=== PATIENT | male | born 1995 | race Caucasian/White ===

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

== ENCOUNTER 2017-08-18 01:17 | Observation (INO) | payer BC, OTHER ==
[~2017-08-18] VITALS: Ht 185.4 cm; Wt 87.6 kg
[~2017-08-18 01:17] MED LIST: AZITTAB PO
[2017-08-18 02:19] LABS: HEMATOCRIT 41.7 % (42-52); HEMOGLOBIN 14.8 g/dL (14.0-18.0); MEAN CELL VOLUME 89.1 fL (80-100); MEAN CORPUSCULAR HEMOGLOBIN 31.6 pg (25-34); MEAN CORPUSCULAR HGB CONC 35.5 g/dl (32-36); MEAN PLATELET VOLUME 10.1 fL (7.4-10.4); PLATELET COUNT 351 K/uL (130-400); RED CELL DISTRIBUTION WIDTH CV 13.1 % (11.5-14.5); RED CELL DISTRIBUTION WIDTH SD 42.7 fL (36.4-46.3); WHITE BLOOD COUNT 16.57 K/uL (4.8-10.8)
[2017-08-18 02:38] LABS: ALBUMIN 4.5 gm/dl (3.4-5.0); CALCIUM 9.1 mg/dl (8.5-10.1); CREATININE 1.15 mg/dl (0.60-1.40); POTASSIUM 3.4 mmol/L (3.5-5.1)
--- NOTE | 2017-08-18 02:45 | EMERGENCY ROOM VISIT NOTE ---
History Report prepared by Eleuterio: Austin Casanova Under the Supervision of: Dr. June Gonzales D.O. First contact with patient: 01:30 Chief Complaint: OVERDOSE (ACCIDENTAL) Stated Complaint: UNDER THE INFLUENCE OF SOMETHING X 3DAYS Nursing Triage Summary: brought in by friends to er. friends state patient was drinking and partying all weekened, wednesday 08/16 they noticed he was not himself, friends stated he was just not acting himself, they stated he took some xanax on wednesday and thought that it may be related to that. today he still was not acting appropriatley so they brought him in. History of Present Illness The patient is a 22 year old male who presents to the Emergency Room with complaints of a worsening altered mental status beginning 9 days ago. The patient's friend states the patient has been altered for 9 days, but it worsened three days ago. The patient reports he is from [place] and went to high school there. He notes he graduated in 2046, and it is May 23. The patient states he went on spring break with his family to spend time with his grandparents. He reports he has not used any drugs recently. The patient notes he has used Xanax, marijuana, and LSD before. He states he does not know how he got the bruises on his arm. The patient reports he is acting happy because he is "tripping on love." He notes it is okay to contact his parents. The patient denies abdominal pain, vomiting, and diarrhea. The patient's friends state they hosted a republican Wednesday and Wednesday night. They report the patient was there, and they believe he consumed Xanax, marijuana, and alcohol all together. The friends note he did not use LSD. They state the patient did seem out of it on Wednesday, but they believed he was just hungover. The friends report he started saying weird things and talking about "the other side". They note they observed the patient Wednesday, Wednesday, and Wednesday. The friends state everything went okay yesterday, and the day before the patient did not go to class. They note the patient used the restroom very frequently today. They report the patient is planning on dropping out and did not find it odd that he skipped. The friends note they have lived with the patient for the entire academic year. 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 The friends report he is a habitual marijuana user. They note he was normal before spring. HPI limited secondary to the patient's altered mental status. Source of History: friend History Limited By: AMS Review of Systems ROS limited secondary to the patient's altered mental status. Past Medical & Surgical Medical Problems: (1) Pneumonia (2) Suicidal ideations (3) Tobacco use disorder Surgical Problems: (1) No history of previous surgery Family History No significant family history Social History Smoking Status: Never Smoker Alcohol Use: occasionally Drug Use: marijuana Marital Status: single Housing Status: lives with friends Occupation Status: [employer] student Current/Historical Medications Unable to Obtain Active Prescriptions or Reported Meds Allergies Coded Allergies: No Known Allergies (Unverified , 07/16/16) Physical Exam Vital Signs Date Time Temp Pulse Resp B/P (MAP) Pulse Ox O2 Delivery O2 Flow Rate FiO2 08/18/17 05:40 36.8 65 16 151/91 98 Room Air 08/18/17 04:09 76 18 148/87 98 Room Air 08/18/17 02:31 83 17 156/81 98 Room Air 08/18/17 02:08 75 18 165/90 100 Room Air 08/18/17 02:07 88 08/18/17 01:20 36.8 88 18 180/106 98 Room Air Physical Exam General: Patient has an altered mental status. He is staring at times and not making good eye contact. He is laughing inappropriately. HEENT: Head - normocephalic and atraumatic Pupils are 8mm and reactive to light. Extraocular eye muscles are intact, and sclera are anicteric. Nose - moist nasal mucosa without discharge. Mouth - moist buccal mucosa. Oropharynx is nonerythematous and there is no tonsillar exudate or edema noted. Neck: Supple; no JVD, nuchal rigidity, cervical lymphadenopathy Heart: Regular rate and rhythm. There is a normal S1 and S2 with no murmurs, clicks, or gallops appreciated. Lungs: Clear to auscultation bilaterally with no wheezes, rales, or rhonchi. Abdomen: Soft, completely nontender, nondistended, with good bowel sounds. There are no palpable pulsatile masses or hepatosplenomegaly. There is no guarding, rigidity, or rebound noted. Extremities: No evidence of cyanosis, clubbing, or edema. There are easily palpable peripheral pulses. Dorsal aspect of right forearm has a few contusions. Skin: warm and dry with good turgor and no rashes. Neurological: Alert but oriented only to self. Frequently would not answer questions appropriately. At times he was staring it would not acknowledge a question. Medical Decision & Procedures ER Provider Diagnostic Interpretation: CT results as stated below per my review and radiologist interpretation: CT HEAD: No ICH, mass effect or edema. No evidence of acute cortical stroke. No midline shift or hydrocephalus. Mucosal thickening and fluid in the left maxillary sinus. Correlate for clinical significance. Radiologist: James Tavarez MD Study ready at 0252 and initial results transmitted at [id number]. Laboratory Results Test 08/18/17 01:41 08/18/17 02:06 Urine Color YELLOW Urine Appearance CLEAR (CLEAR) Urine pH 7.0 (4.5-7.5) Urine Specific [place] 1.018 (1.000-1.030) Urine Protein NEG (NEG) Urine Glucose (UA) NEG (NEG) Urine Ketones TRACE (NEG) Urine Occult Blood NEG (NEG) Urine Nitrite NEG (NEG) Urine Bilirubin NEG (NEG) Urine Urobilinogen NEG (NEG) Urine Leukocyte Esterase NEG (NEG) Urine Opiates Screen NEG (NEG) Urine Methadone, Qualitative NEG (NEG) Urine Barbiturates NEG (NEG) Urine Phencyclidine (PCP) Level NEG (NEG) Ur Amphetamine/Methamphetamine POS (NEG) MDMA (Ecstasy) Screen NEG (NEG) Urine Benzodiazepines Screen POS (NEG) Urine Cocaine Metabolite NEG (NEG) Urine Marijuana (THC) POS (NEG) Immature Granulocyte % (Auto) 0.2 % White Blood Count 16.57 K/uL (4.8-10.8) Red Blood Count 4.68 M/uL (4.7-6.1) Hemoglobin 14.8 g/dL (14.0-18.0) Hematocrit 41.7 % (42-52) Mean Corpuscular Volume 89.1 fL (80-100) Mean Corpuscular Hemoglobin 31.6 pg (25-34) Mean Corpuscular Hemoglobin Concent 35.5 g/dl (32-36) Platelet Count 351 K/uL (130-400) Mean Platelet Volume 10.1 fL (7.4-10.4) Neutrophils (%) (Auto) 82.0 % Lymphocytes (%) (Auto) 10.2 % Monocytes (%) (Auto) 7.1 % Eosinophils (%) (Auto) 0.4 % Basophils (%) (Auto) 0.1 % Neutrophils # (Auto) 13.41 K/uL (1.4-6.5) Lymphocytes # (Auto) 1.66 K/uL (1.2-3.4) Monocytes # (Auto) 1.16 K/uL (0.11-0.59) Eosinophils # (Auto) 0.06 K/uL (0-0.5) Basophils # (Auto) 0.02 K/uL (0-0.2) Immature Granulocyte # (Auto) 0.03 K/uL (0.00-0.02) Nucleated RBC Absolute Count (auto) 0.00 K/uL (0-0) Nucleated Red Blood Cells % 0.0 % Total Bilirubin 0.7 mg/dl (0.2-1) Direct Bilirubin 0.1 mg/dl (0-0.2) Aspartate Amino Transf (AST/SGOT) 13 U/L (15-37) Alanine Aminotransferase (ALT/SGPT) 18 U/L (12-78) Alkaline Phosphatase 86 U/L (45-117) Total Protein 8.0 gm/dl (6.4-8.2) Albumin 4.5 gm/dl (3.4-5.0) Thyroid Stimulating Hormone (TSH) 4.080 uIu/ml (0.300-4.500) Salicylates Level < 1.7 mg/dl (2.8-20) Acetaminophen Level < 2 ug/ml (10-30) Ethyl Alcohol mg/dL < 3.0 mg/dl (0-3) Laboratory results per my review. ED Course 0222: Past medical records reviewed. The patient was evaluated in room A06. A complete history and physical exam was performed. Labs were drawn as above. I had an extensive conversation with the patient's friends who were at the bedside. We attempted to contact the patient's parents but were unsuccessful. 0417: I reevaluated the patient. I discussed all laboratory and physical exam findings. The patient is still altered. 0425: I discussed the patient's case with the resident of Dr. Green [facility] Hospitalist. The patient will be evaluated for further management and care. 0448: I discussed the patient's case with his friend. I updated him of the patient's current test results and treatment plan. Medical Decision The patient is a 22 year old male who presents to the ED with an altered mental status. Differential diagnosis includes drug intoxication, hypoglycemia, intracranial hemorrhage, intracranial mass, stroke. Lab results show: Urine: trace ketones. Alcohol is negative, Tylenol and aspirin are negative. Tox screen in positive for amphetamines, benzos, and marijuana. Normal TSH, LFTs, and renal function. Glucose of 106. WBC of 16.5. This is a 22-year-old male patient brought to the emergency department by friends for an altered mental status. They believe that the patient is under the influence of drugs but are concerned because despite them watching him closely throughout the day today, his mental status seems more altered than it had been previously. The patient's answers were inconsistent. By history though, the patient seems to have an extensive drug use history. His mental status is significantly altered at this time. The friends and the patient denies any history of head trauma. He has no outward signs of trauma. His physical exam is unremarkable except for his neurological exam which is inconsistent but mostly the patient is unable to answer simple questions. In fact, it is quite difficult for him to formulate a complete sentence. The patient does smile and laugh inappropriately. Medication Reconcilliation Current Medication List: was personally reviewed by me Blood Pressure Screening Patient's blood pressure: Elevated blood pressure Referred to hospitalist. Consults Time Called: [phone] Consulting Physician: resident of Dr. Green [facility] Hospitalist Returned Call: [phone] I discussed the patient's case with the resident of Dr. Green [facility] Hospitalist. The patient will be evaluated for further management and care. Impression Primary Impression: Polysubstance abuse Additional Impression: Altered mental status Scribe Attestation The scribe's documentation has been prepared under my direction and personally reviewed by me in its entirety. I confirm that the note above accurately reflects all work, treatment, procedures, and medical decision making performed by me. Departure Information Dispostion Being Evaluated By Hospitalist Prescriptions Unable to Obtain Active Prescriptions or Reported Meds Referrals No Doctor, Assigned (PCP) Patient Instructions My [facility] Problem Qualifiers Additional Impression: Altered mental status Altered mental status type: delirium Qualified Codes: R41.0 - Disorientation , unspecified
[2017-08-18] MEDS ORDERED: NITROGLYCERIN 0.4 MG SL PER TAB CHARGE SL PRN (04:45)
[2017-08-18] MEDS ORDERED: POLYETHYLENE (MIRALAX) 17 GM PACK PO PRN (04:45)
[2017-08-18] MEDS ORDERED: ALUMINUM/MAGNESIUM/SIMETH (MAALOX MAX) 30 ML UDC PO PRN (04:45)
[2017-08-18] MEDS ORDERED: MAGNESIUM HYDROXIDE SUSP 30 ML UDC PO PRN (04:45)
[2017-08-18] MEDS ORDERED: ACETAMINOPHEN 325 MG TAB PO PRN (04:45)
[2017-08-18] MEDS ORDERED: ONDANSETRON INJ 2 MG/ML 2 ML VIAL IV PRN (04:45)
--- NOTE | 2017-08-18 04:45 | History and Physical ---
History & Physical Date & Time of Service: Aug 18, 2017 at 04:30 Chief Complaint: Under The Influence Of Something X 3DAYS Primary Care Physician: No Doctor, Assigned History of Present Illness Source: patient, hospital records 22 year male with history of polysubstance abuse is brought to the ER by his friends for a 7 day history of acting strangely and a 2 day history of patient being non-coherent and making several comments about and dying. Patient is currently a poor historian secondary to altered mental status, although there seems to be some improvement in coherence since evaluation by ER physician. Friends state patient has been taking multiple drugs, including Xanax, something for ADHD, marijuana and drinking alcohol. He starting acting stranger than usual recently, but they have noted abnormalities for some time. Patient is said to be pretty happy at baseline, but can appear to be depressed at moment 's notice. 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 His parents are unaware of his plans to quit school and start a business with [employer] because "he is meant to do more". Speaking to the patient, when asked how he is feeling, he states "I'm doing great". He denies headache, fevers, chills, visual changes, neck pain, breathing difficulties, nausea, vomiting, abdominal pain, urinary symptoms, numbness, weakness, rash, or other complaints. When asked about his drug use, he is unable to recall how much he is taking or when he last took them. When discussing where he gets these drugs, he states he buys it off a friend. When asked why he was taking drugs or if he has any suicidal thoughts, he stated "I tried to kill myself with the Xanax, but then I found myself" He denies current SI or HI. ROS is unremarkable except as noted above. Past Medical/Surgical History Medical Problems: (1) Pneumonia (2) Tobacco use disorder Surgical Problems: (1) No history of previous surgery Family History No significant family history Social History Smoking Status: Never Smoker Drug Use: marijuana Marital Status: single Occupational Status: [employer] student Immunizations History of Influenza Vaccine: Unknown History of Tetanus Vaccine?: Unknown History of Pneumococcal: Unknown History of Hepatitis B Vaccine: Unknown Allergies Coded Allergies: No Known Allergies (Unverified , 07/16/16) Home Medications Unable to Obtain Active Prescriptions or Reported Meds Physical Exam Vital Signs Date Time Temp Pulse Resp B/P (MAP) Pulse Ox O2 Delivery O2 Flow Rate FiO2 08/18/17 04:09 76 18 148/87 98 Room Air 08/18/17 02:31 83 17 156/81 98 Room Air 08/18/17 02:08 75 18 165/90 100 Room Air 08/18/17 02:07 88 08/18/17 01:20 36.8 88 18 180/106 98 Room Air General Appearance: WD/WN, no apparent distress Head: normocephalic, atraumatic Eyes: sclerae normal, + pertinent finding (pupils dilated) ENT: hearing grossly normal, pharynx normal Neck: supple, no adenopathy Respiratory/Chest: normal breath sounds, no respiratory distress, no accessory muscle use Cardiovascular: regular rate, rhythm, no murmur, normal peripheral pulses Abdomen/GI: normal bowel sounds, non tender, soft Back: normal inspection Extremities/Musculoskelatal: no calf tenderness, no pedal edema Neurologic/Psych: + disoriented, + pertinent finding (slow speech, responds appropriately intermittently, often requiring repititon of the question) Skin: normal color, warm/dry, no rash Diagnostics Laboratory Results Results Past 24 Hours Test 08/18/17 01:41 08/18/17 02:06 Range/Units Urine Color YELLOW Urine Appearance CLEAR CLEAR Urine pH 7.0 4.5-7.5 Urine Specific [place] 1.018 1.000-1.030 Urine Protein NEG NEG Urine Glucose (UA) NEG NEG Urine Ketones TRACE NEG Urine Occult Blood NEG NEG Urine Nitrite NEG NEG Urine Bilirubin NEG NEG Urine Urobilinogen NEG NEG Urine Leukocyte Esterase NEG NEG Urine Opiates Screen NEG NEG Urine Methadone, Qualitative NEG NEG Urine Barbiturates NEG NEG Urine Phencyclidine (PCP) Level NEG NEG Ur Amphetamine/Methamphetamine POS NEG MDMA (Ecstasy) Screen NEG NEG Urine Benzodiazepines Screen POS NEG Urine Cocaine Metabolite NEG NEG Urine Marijuana (THC) POS NEG White Blood Count 16.57 4.8-10.8 K/uL Red Blood Count 4.68 4.7-6.1 M/uL Hemoglobin 14.8 14.0-18.0 g/dL Hematocrit 41.7 42-52 % Mean Corpuscular Volume 89.1 80-100 fL Mean Corpuscular Hemoglobin 31.6 25-34 pg Mean Corpuscular Hemoglobin Concent 35.5 32-36 g/dl RDW Standard Deviation 42.7 36.4-46.3 fL RDW Coefficient of Variation 13.1 11.5-14.5 % Platelet Count 351 130-400 K/uL Mean Platelet Volume 10.1 7.4-10.4 fL Sodium Level 139 136-145 mmol/L Potassium Level 3.4 3.5-5.1 mmol/L Chloride Level 101 98-107 mmol/L Carbon Dioxide Level 29 21-32 mmol/L Anion Gap 9.0 3-11 mmol/L Blood Urea Nitrogen 5 7-18 mg/dl Creatinine 1.15 0.60-1.40 mg/dl Est Creatinine Clear Calc Drug Dose 115.8 ml/min Estimated GFR () 105.6 Estimated GFR (Non- 91.1 BUN/Creatinine Ratio 4.5 10-20 Random Glucose 106 70-99 mg/dl Calcium Level 9.1 8.5-10.1 mg/dl Total Bilirubin 0.7 0.2-1 mg/dl Direct Bilirubin 0.1 0-0.2 mg/dl Aspartate Amino Transf (AST/SGOT) 13 15-37 U/L Alanine Aminotransferase (ALT/SGPT) 18 12-78 U/L Alkaline Phosphatase 86 45-117 U/L Total Protein 8.0 6.4-8.2 gm/dl Albumin 4.5 3.4-5.0 gm/dl Thyroid Stimulating Hormone (TSH) 4.080 0.300-4.500 uIu/ml Salicylates Level < 1.7 2.8-20 mg/dl Acetaminophen Level < 2 10-30 ug/ml Ethyl Alcohol mg/dL < 3.0 0-3 mg/dl Diagnostic Radiology HEAD WITHOUT CONTRAST (CT) CT DOSE: 614.27 mGy.cm HISTORY: Mental status change altered ms TECHNIQUE: Multiaxial CT images of the head were performed without the use of intravenous contrast. A dose lowering technique was utilized adhering to the principles of ALARA. Comparison: None. Findings: The paranasal sinuses and mastoid air cells are clear. The calvarium and skull base are intact. The ventricles and sulci are within normal limits. There is no mass, hematoma, midline shift, or acute infarct. Slight increased density right transverse sinus felt to represent unremarkable normal asymmetry. Impression: No acute intracranial abnormality. Impression Assessment and Plan 22 year old male with polysubstance abuse presents to the ER with altered mental status and suicidal ideation Altered mental status - CT head negative for pathology - EKG showed NSR with normal intervals including normal QTc - Urine drug screen positive for benzos, amphetamine, marijuana - reflex testing pending - Neuro checks q4h Suicidal ideation - Psychiatry consulted - One to one sitter Leukocytosis - Patient afebrile, BP in acceptable range, saturating well on RA - no abx started - Trend CBC VTE ppx - SCDs FULL CODE Attending addendum: I have physically seen this patient, have supervised the medical residents activities, and agree with the H&P unless as otherwise noted. Assessment and Plan: Suicidal ideation/intentional drug overdose-- Admit to the telemetry unit for close monitoring. Neuro checks every 4 hours. Present urine drug screen positive for benzodiazepines, amphetamine/ methamphetamine and marijuana. Consult psychiatry. One-on-one sitter overnight. Advanced Directives Existing Health Care Proxy: Yes (Parents) Resuscitation Status Full code VTE Prophylaxis Will order VTE Prophylaxis: Yes Resident Tracking Resident Involvement: Resident Care Provided Care Provided: Pediatric Care (not )
[2017-08-18 04:56] LABS: BASO % 0.1 %; BASO ABS # 0.02 K/uL (0-0.2); EOS % 0.4 %; EOS ABS # 0.06 K/uL (0-0.5); IG# 0.03 K/uL (0.00-0.02); LYMPH % 10.2 %; LYMPH ABS # 1.66 K/uL (1.2-3.4); MONO % 7.1 %; MONO ABS # 1.16 K/uL (0.11-0.59); NEUT ABS # 13.41 K/uL (1.4-6.5)
[2017-08-18] MEDS ORDERED: IV FLUIDS COMPLETED PRN (06:15)
[2017-08-18 06:52] LABS: HEMATOCRIT 41.6 % (42-52); HEMOGLOBIN 14.5 g/dL (14.0-18.0); MEAN CELL VOLUME 89.3 fL (80-100); MEAN CORPUSCULAR HEMOGLOBIN 31.1 pg (25-34); MEAN CORPUSCULAR HGB CONC 34.9 g/dl (32-36); MEAN PLATELET VOLUME 10.2 fL (7.4-10.4); PLATELET COUNT 301 K/uL (130-400); RED CELL DISTRIBUTION WIDTH SD 42.4 fL (36.4-46.3); WHITE BLOOD COUNT 12.14 K/uL (4.8-10.8)
[2017-08-18] MEDS ORDERED: SODIUM CHLORIDE 0.9% 1000ML 1,000 ML IV SCH (07:00)
--- NOTE | 2017-08-18 07:01 | DIAGNOSTIC IMAGING REPORT ---
HEAD WITHOUT CONTRAST (CT) CT DOSE: 614.27 mGy.cm HISTORY: Mental status change altered ms TECHNIQUE: Multiaxial CT images of the head were performed without the use of intravenous contrast. A dose lowering technique was utilized adhering to the principles of ALARA. Comparison: None. Findings: The paranasal sinuses and mastoid air cells are clear. The calvarium and skull base are intact. The ventricles and sulci are within normal limits. There is no mass, hematoma, midline shift, or acute infarct. Slight increased density right transverse sinus felt to represent unremarkable normal asymmetry. Impression: No acute intracranial abnormality. The above report was generated using voice recognition software. It may contain grammatical, syntax or spelling errors. Electronically signed by: Freddie Lowery M.D. 08/18/2017 6:59 AM Dictated Date/Time: 08/18/2017 6:56 AM
[2017-08-18 07:09] LABS: CALCIUM 9.2 mg/dl (8.5-10.1); CREATININE 1.09 mg/dl (0.60-1.40); POTASSIUM 3.8 mmol/L (3.5-5.1)
[2017-08-18 07:37] VITALS: BP 160/93; PULSE 74; TEMP 36.8; O2SAT 100
[2017-08-18 08:12] VITALS: O2SAT 100; Ht 185.4 cm; Wt 87.6 kg
[2017-08-18] MEDS ORDERED: PNEUMOCOCCAL POLYSACCHARIDES 25 MCG/0.5 ML VIAL/SYR IM. ONE (11:00)
[2017-08-18] MEDS ORDERED: INFLUENZA VIRUS QUAD VACCINE 0.5 ML SYR IM. ONE (11:00)
[2017-08-18] MEDS ORDERED: PNEUMOCOCCAL ADMINISTRATION CHARGE ONE (11:00)
[2017-08-18] MEDS ORDERED: INFLUENZA ADMINISTRATION CHARGE ONE (11:00)
--- NOTE | 2017-08-18 11:11 | Family Medicine Progress Note ---
Progress Note Date of Service Aug 18, 2017. Subjective Pt evaluation today including: conversation w/ patient, physical exam, chart review, lab review Pain: Denies pain 22-year-old male with history of polysubstance abuse admitted after he was brought to the ER by his friends due to concerns of being noncoherent and acting strange and making comments about and dying. The patient appears to be disoriented and does not answer questions, however he follows commands. Per the admitting team, he had verbalized suicidal ideations and stated that he had taken Xanax to end his life. States that "this is the best he has ever been "and states that he is in heaven. Additional Comments: Is a unable to obtain as patient does not answer questions Medications Current Inpatient Medications Medications (Trade) Dose Ordered Sig/Emmanuelle Route Start Time Stop Time Status Last Admin Dose Admin Sodium Chloride 1,000 ml @ 100 mls/hr Q10H IV 08/18/17 07:00 09/17/17 06:59 08/18/17 07:06 100 MLS/HR Acetaminophen (Tylenol Tab) 650 mg Q4H PRN PO 08/18/17 04:45 09/17/17 04:44 Al Hydrox/Mg Hydrox/Simethicone (Maalox Max Susp) 15 ml Q4H PRN PO 08/18/17 04:45 09/17/17 04:44 Magnesium Hydroxide (Milk Of Magnesia Susp) 30 ml Q12H PRN PO 08/18/17 04:45 09/17/17 04:44 Ondansetron HCl (Zofran Inj) 4 mg Q6H PRN IV 08/18/17 04:45 09/17/17 04:44 Nitroglycerin (Nitrostat Tab) 0.4 mg UD PRN SL 08/18/17 04:45 09/17/17 04:44 Polyethylene (Miralax Powder Packet) 17 gm DAILY PRN PO 08/18/17 04:45 09/17/17 04:44 Miscellaneous (Iv Fluids Completed) 1 ea PRN PRN N/A 08/18/17 06:15 08/18/18 06:14 Objective Vital Signs Date Time Temp Pulse Resp B/P (MAP) Pulse Ox O2 Delivery O2 Flow Rate FiO2 08/18/17 08:12 100 Room Air 08/18/17 07:37 36.8 74 20 160/93 (115) 100 Room Air 08/18/17 06:36 70 16 150/89 98 Room Air 08/18/17 05:40 36.8 65 16 151/91 98 Room Air 08/18/17 04:09 76 18 148/87 98 Room Air 08/18/17 02:31 83 17 156/81 98 Room Air 08/18/17 02:08 75 18 165/90 100 Room Air 08/18/17 02:07 88 08/18/17 01:20 36.8 88 18 180/106 98 Room Air Physical Exam ENT: hearing grossly normal Neck: supple Respiratory/Chest: lungs clear, normal breath sounds, no respiratory distress, no accessory muscle use Cardiovascular: regular rate, rhythm Neurologic/Psychiatric: alert, normal mood/affect, oriented x 3 Skin: normal color Laboratory Results 08/18/17 06:42 08/18/17 06:42 Test 08/18/17 01:41 08/18/17 02:06 08/18/17 06:42 Urine Color YELLOW Urine Appearance CLEAR (CLEAR) Urine pH 7.0 (4.5-7.5) Urine Specific [place] 1.018 (1.000-1.030) Urine Protein NEG (NEG) Urine Glucose (UA) NEG (NEG) Urine Ketones TRACE (NEG) Urine Occult Blood NEG (NEG) Urine Nitrite NEG (NEG) Urine Bilirubin NEG (NEG) Urine Urobilinogen NEG (NEG) Urine Leukocyte Esterase NEG (NEG) Urine Opiates Screen NEG (NEG) Urine Methadone, Qualitative NEG (NEG) Urine Barbiturates NEG (NEG) Urine Phencyclidine (PCP) Level NEG (NEG) Ur Amphetamine/Methamphetamine POS (NEG) MDMA (Ecstasy) Screen NEG (NEG) Urine Benzodiazepines Screen POS (NEG) Urine Cocaine Metabolite NEG (NEG) Urine Marijuana (THC) POS (NEG) Immature Granulocyte % (Auto) 0.2 % White Blood Count 16.57 K/uL (4.8-10.8) Red Blood Count 4.68 M/uL (4.7-6.1) 4.66 M/uL (4.7-6.1) Hemoglobin 14.8 g/dL (14.0-18.0) Hematocrit 41.7 % (42-52) Mean Corpuscular Volume 89.1 fL (80-100) 89.3 fL (80-100) Mean Corpuscular Hemoglobin 31.6 pg (25-34) 31.1 pg (25-34) Mean Corpuscular Hemoglobin Concent 35.5 g/dl (32-36) 34.9 g/dl (32-36) Platelet Count 351 K/uL (130-400) Mean Platelet Volume 10.1 fL (7.4-10.4) 10.2 fL (7.4-10.4) Neutrophils (%) (Auto) 82.0 % Lymphocytes (%) (Auto) 10.2 % Monocytes (%) (Auto) 7.1 % Eosinophils (%) (Auto) 0.4 % Basophils (%) (Auto) 0.1 % Neutrophils # (Auto) 13.41 K/uL (1.4-6.5) Lymphocytes # (Auto) 1.66 K/uL (1.2-3.4) Monocytes # (Auto) 1.16 K/uL (0.11-0.59) Eosinophils # (Auto) 0.06 K/uL (0-0.5) Basophils # (Auto) 0.02 K/uL (0-0.2) Immature Granulocyte # (Auto) 0.03 K/uL (0.00-0.02) Nucleated RBC Absolute Count (auto) 0.00 K/uL (0-0) Nucleated Red Blood Cells % 0.0 % Total Bilirubin 0.7 mg/dl (0.2-1) Direct Bilirubin 0.1 mg/dl (0-0.2) Aspartate Amino Transf (AST/SGOT) 13 U/L (15-37) Alanine Aminotransferase (ALT/SGPT) 18 U/L (12-78) Alkaline Phosphatase 86 U/L (45-117) Total Protein 8.0 gm/dl (6.4-8.2) Albumin 4.5 gm/dl (3.4-5.0) Thyroid Stimulating Hormone (TSH) 4.080 uIu/ml (0.300-4.500) Salicylates Level < 1.7 mg/dl (2.8-20) Acetaminophen Level < 2 ug/ml (10-30) Ethyl Alcohol mg/dL < 3.0 mg/dl (0-3) RDW Standard Deviation 42.4 fL (36.4-46.3) RDW Coefficient of Variation 13.0 % (11.5-14.5) Anion Gap 6.0 mmol/L (3-11) Est Creatinine Clear Calc Drug Dose 122.1 ml/min Estimated GFR () 112.6 Estimated GFR (Non- 97.2 BUN/Creatinine Ratio 4.1 (10-20) Calcium Level 9.2 mg/dl (8.5-10.1) Assessment and Plan 22-year-old male presented to the ER with concerns of polysubstance abuse and strange behavior per his friends. Urine drug screen was positive for amphetamines, benzodiazepines and marijuana Concern of suicidal ideation though he currently does not give any meaningful answers. Altered mental status : Likely secondary to a combination of polysubstance abuse and mental health disturbance -Head CT negative, EKG normal -Urine drug screen positive for benzos, amphetamine and marijuana -Suicide checks , one-to-one sitter -Psychiatry consult- risperidone 1 mg BID ordered - Haldol 5 mg q6h as needed for agitation Elevated blood pressure -Likely secondary to withdrawal from polysubstance abuse Continue to monitor Leukocytosis: - Likely secondary to stress response -No obvious foci of infection Full code Resident Physician Supervision Note: I interviewed and examined the patient. Discussed with Dr. Liu and agree with findings and plan as documented in the note. Any exceptions or clarifications are listed here: None Documented By: Terell Luna no meaningful HPI or ROS, laughs, cries, crawls around bed, rips monitor off sinus tachy only on monitor vitals noted as above, no physical distress, well hydrated, no neuro deficits, unable to assess mentation as he doesn't answer questions, acts randomly, laughs and cries probable substance induced psychosis vs less likely [place]/psychosis -supportive care, antipsychotics, time Resident Tracking Resident Involvement: Resident Care Provided Care Provided: Adult Hospital Medicine
[2017-08-18 11:13] VITALS: BP 152/95; PULSE 74; TEMP 36.9; O2SAT 99
--- NOTE | 2017-08-18 13:13 | Medical Student: BHU Only ---
Psychiatric Evaluation Date of Service: Aug 18, 2017. 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 Huey Chapman was brought to the hospital by friends. Information provided by the patient is considered to be unreliable as patient remains altered. CHIEF COMPLAINT: "I walked here this morning. I was just doing bad stuff with my friends last night". HISTORY OF PRESENT ILLNESS: Huey Chapman is a 22 year old male with past medical history significant for polysubstance abuse who presents for altered mental status. Per reports, he was brought to the ER early this morning after a 7-day history of strange behavior and 2-day history of non-coherence and statements regarding . Friends who were present in the ER and again this afternoon state that he likely took Xanax , ADHD medication, marijuana, and alcohol. There is some question whether he also took LSD. They say he is generally happy but may become depressed in a moment's notice. Note from primary team this morning states he made a statement about "trying to kill [himself] with Xanax but then [he] found [himself]." Upon arrival in the room, the patient was laughing to himself, rocking his body back and forth with his eyes closed. When asked why he was brought to the ER this morning, he states that he walked himself to the hospital and that he was "doing bad stuff with [his] friends last night." When asked what types of things , he says "Oh we killed ourselves. I was a Zombie. I killed myself." When asked whether he has suffered from depression, Huey claims "my whole life, people have told me I am crazy and cocky." When asked why, he responds "because they do not understand. They do not understand the future." When asked if he has ever seen a psychiatrist, Huey states he previously received Adderall, Xanax , and Ambien. He later retracts this statement saying he has never seen a psychiatrist, and he got the medications from a friend. He has random outbursts screaming "I knew it!." After realizing this interviewer is part of the psychiatry team, he says "I need everything you think I need to have fun. Just give me one of everything. I have the girl I want. I have friends. My life is perfect." When asked about depression, he says "society would call me depressed " but denies ever using an anti-depressant or having suicidal ideations. His sitter states that throughout the day, he will burst out in tears exclaiming "I am in heaven!" He admits to having anxiety but can not answer any questions about levy, panic disorder, OCD symptoms, or PTSD. When asked about substance use, Huey states he uses acid, Xanax, marijuana, and Adderall. He later states that he is not on any drugs nor that he uses alcohol. In terms of personal history, patient states he grew up in [place] with his parents and younger sister. Records indicate he is from [place], and his sitter states earlier he said he was from [place]. He tells this interviewer that he has a 4.0 in Business, which his sitter again reports differs from previous statements where he majored in computer science or art. He claims to "make a shit ton of money on [employer]." He is unable to answer any more questions on his personal history. CURRENT MEDICATIONS: None per mother PAST PSYCHIATRIC HISTORY: Current outpatient mental health treatment: None per mother Prior outpatient mental health treatment: None per mother Prior psychiatric hospitalizations: None per mother Prior medication trials: None per mother Prior suicide attempts: None per mother Access to weapons: Unknown. PAST MEDICAL HISTORY: Current primary care practitioner is unknown. Medical history: Negative for DM, obesity, heart disease, hypercholesterolemia, HTN History of head injury: Unknown History of seizure: Unknown History of iv drug use: Unknown ALLERGIES: None FAMILY HISTORY: Patient is adopted. His biological mother has anxiety. SUBSTANCE USE HISTORY: Friends relay that patient has used Xanax, marijuana, Adderall, alcohol, and possibly LSD. Mother is only aware of marijuana, alcohol, and one-time Adderall use. PERSONAL HISTORY: Patient is [place]. Further information was not able to determined given patient's altered mental status. ROS: Unable to be determined given patient's mental status. Labs, studies, imaging: Test 08/18/17 01:41 08/18/17 02:06 08/18/17 06:42 Urine Color YELLOW Urine Appearance CLEAR Urine pH 7.0 Urine Specific [place] 1.018 Urine Protein NEG Urine Glucose (UA) NEG Urine Ketones TRACE Urine Occult Blood NEG Urine Nitrite NEG Urine Bilirubin NEG Urine Urobilinogen NEG Urine Leukocyte Esterase NEG Urine Opiates Screen NEG Urine Methadone, Qualitative NEG Urine Barbiturates NEG Urine Phencyclidine (PCP) Level NEG Urine Amphetamines Confirmation Pending Ur Amphetamine/Methamphetamine POS Urine Methamphetamine Confirmation Pending MDMA (Ecstasy) Screen NEG Urine Hydroxyalprazolam Confirm Pending Urine Benzodiazepines Screen POS 7-Amino Clonazepam Level Pending Urine Nordiazepam Confirmation Pending Urine Hydroxyethylflurazepam Level Pending Urine Lorazepam (GC/MS) Pending Urine Oxazepam Confirm (GC/MS) Pending Urine Temazepam Confirmation Pending Urine Hydroxytriazolam Confirmation Pending Urine Hydroxymidazolam Confirmation Pending Urine Cocaine Metabolite NEG Urine Marijuana (THC) POS Urine Marijuana (THC Carboxy Acid) Pending White Blood Count 16.57 12.14 Red Blood Count 4.68 4.66 Hemoglobin 14.8 14.5 Hematocrit 41.7 41.6 Mean Corpuscular Volume 89.1 89.3 Mean Corpuscular Hemoglobin 31.6 31.1 Mean Corpuscular Hemoglobin Concent 35.5 34.9 Platelet Count 351 301 Mean Platelet Volume 10.1 10.2 Neutrophils (%) (Auto) 82.0 Lymphocytes (%) (Auto) 10.2 Monocytes (%) (Auto) 7.1 Eosinophils (%) (Auto) 0.4 Basophils (%) (Auto) 0.1 Neutrophils # (Auto) 13.41 Lymphocytes # (Auto) 1.66 Monocytes # (Auto) 1.16 Eosinophils # (Auto) 0.06 Basophils # (Auto) 0.02 RDW Standard Deviation 42.7 42.4 RDW Coefficient of Variation 13.1 13.0 Immature Granulocyte % (Auto) 0.2 Immature Granulocyte # (Auto) 0.03 Nucleated RBC Absolute Count (auto) 0.00 Nucleated Red Blood Cells % 0.0 Sodium Level 139 139 Potassium Level 3.4 3.8 Chloride Level 101 104 Carbon Dioxide Level 29 29 Anion Gap 9.0 6.0 Blood Urea Nitrogen 5 5 Creatinine 1.15 1.09 Est Creatinine Clear Calc Drug Dose 115.8 122.1 Estimated GFR () 105.6 112.6 Estimated GFR (Non- 91.1 97.2 BUN/Creatinine Ratio 4.5 4.1 Random Glucose 106 122 Calcium Level 9.1 9.2 Total Bilirubin 0.7 Direct Bilirubin 0.1 Aspartate Amino Transferase (AST) 13 Alanine Aminotransferase (ALT) 18 Alkaline Phosphatase 86 Total Protein 8.0 Albumin 4.5 Thyroid Stimulating Hormone (TSH) 4.080 Salicylates Level < 1.7 Acetaminophen Level < 2 Ethyl Alcohol mg/dL < 3.0 PHYSICAL EXAM: Per hospitalist Vitals: T 36.9, P 74, RR 18, BP 152/95 MENTAL STATUS EXAM: Appearance is that of an appropriately groomed male who appears his age. On arrival, patient is laughing to himself, rocking back and forth with his eyes closed. Patient is not cooperative with the interview. Eye contact is minimal (eyes are closed). Motor behavior is abnormal (Patient is rocking back and forth. His head is swinging back. He is rapidly moving his fingers in circles). Speech: High volume, rate, and tone. Affect: Inappropriate, expansive. Mood: "Feels good". Thought process: Word salad, thought blocking, incoherence, irrelevance Thought content: Denies SI and HI although severely altered Cognition: The patient is not oriented to as tested: year, season, month, and date as well as city and location. Intelligence is unable to be determined. Insight is estimated to be severely impaired. Judgment is estimated to be severely impaired. INVENTORY OF ASSETS: * strengths: Per mother, patient is a well-liked male. He has friends and family as support. * resources: Friends and family as support system. * needs: Substance use treatment; further psychiatric evaluation to determine if there are underlying mental health diagnoses RISK ASSESSMENT: * Risk factors: Male, ,Single, Substance Use Disorders * Protective factors: Stable relationships, Supportive family DIAGNOSTIC IMPRESSION: Huey Chapman is a 22-year-old male with past medical history significant for polysubstance abuse who presents for altered mental status. He remains relatively incoherent and altered with an inability to answer questions consistently or appropriately. His tox screen is positive for benzodiazepines, amphetamines, and THC, although there is question of LSD use as well. Synthetics pending. Per reports from mother, he does not have a diagnosed psychiatric history although there is question of anxiety and bipolar disorder. RECOMMENDATIONS: 1. Polysubstance Use - Monitor patient for withdrawal; BP remains elevated - Synthetics pending - Obtain collateral information from parents; will obtain more information from patient once he returns to a normal mental state - As of now, patient does not meet criteria for admission to [facility] as he does not have any psychiatric illnesses diagnosed. Further information needs to be obtained from patient. Likely will refer to rehab for treatment unless there is evidence of underlying psychiatric illness requiring inpatient admission.
--- NOTE | 2017-08-18 14:02 | Medical Student: BHU Only ---
Psychiatric Progress Note Date of Service: Aug 18, 2017. Phone Call with Mother (Audra Chapman) on 08/18/17: Mother is aware Huey is in the hospital. She states that Huey has never been diagnosed with any psychiatric illness. She believes he has anxiety, however. Mother is unable to pinpoint specific stressors but states he becomes anxious after arguments with his mother and when he is late. He is currently a [employer] student but does not plan to return in the Fall. Huey has lost some weight recently, which he attributed to eating less junk food. Now, she is concerned that this is because of his drug use. She is quite surprised to have heard the amount of drugs he has been taking. She knew he "smoked a lot of pot" to calm his anxiety. She was also aware that he took Adderall from a friend once to complete school work and that he drinks alcohol. She has never heard him admit to suicidal ideations or engage in self-harm behavior. When asked about symptoms of levy, she states she would "not be surprised if he was diagnosed with bipolar disorder." Although Huey is adopted, her is bipolar so she is familiar with the symptoms. She relays he has episodes, such as a recent episode in July, where he gets very excited, "high," and talks fast. However, she is unsure whether this is just his personality as he has been like this since he was 12-13. His biological mother suffers from anxiety.
[2017-08-18] MEDS ORDERED: HALOPERIDOL LACTATE 5 MG/ML 1 ML VIAL IM PRN (14:15)
[2017-08-18] MEDS ORDERED: HALOPERIDOL LACTATE 5 MG/ML 1 ML VIAL IM ONE (14:15)
[2017-08-18 15:11] VITALS: BP 170/98; PULSE 97; TEMP 37.1; O2SAT 96
--- NOTE | 2017-08-18 15:58 | Psychiatric Consultation ---
Consultation Date of Consultation Aug 18, 2017. 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 Chief Complaint Patient laughing uncontrollably. History of Present Illness The patient was seen with Patricia Caba, [facility]. History if obtained from the chart , hospital staff and patient's friends and mother. He is not a reliable historian, gives conflicting reports, and much of his speech is nonsensical. He was admitted this morning after friends brought him to the ER for AMS. They reported he's been abusing Xanax, alcohol, stimulant ADHD meds, and marijuana. He has had bizarre behavior for the past 7 days and for the past 2 days has been incoherent and made statements about . He made a suicidal statement to the admitting physician, but denied SI to other clinicians. He is demonstrating mood lability, switching rapidly from exhilarated mood to depressed. He told his 1:1 staff he was in heaven, then said he was in hell. He has not attempted to harm himself or been aggressive towards others. On my assessment, he is laughing without provocation, staring intently, and answering bizarrely, stating "she knows" and laughing when asked basic questions. He contradicts himself frequently, and is not able to provide any reliable information. The medical student spoke to his mother on the phone and she denies that he has any history of psychiatric treatment, but thinks he has high anxiety. Past Psychiatric History Current OP Treatment: no current treatment Prior OP Treatment: no prior treatment Prior Psych Hospitalizations: none Suicide Attempts: No Past Medication Trials None Past Medical/Surgical History (1) Polysubstance abuse Allergies Allergies: Coded Allergies: No Known Allergies (Unverified , 07/16/16) Home Medications Unable to Obtain Active Prescriptions or Reported Meds Family History No significant family history Adopted Alcohol Use Alcohol Use In Past 12 Months: Yes Smoking Use Smoking Status: Former Smoker Substance History Abusing Xanax, stimulant medication, alcohol and cannabis. Amt/duration unknown. Possibly used LSD per friends. Personal History Education: started college Relationship History: never Review of Systems pt too disorganized to participate in ROS Examination Vital Signs Vital Signs Past 12 Hours Date Time Temp Pulse Resp B/P (MAP) Pulse Ox O2 Delivery O2 Flow Rate FiO2 08/18/17 15:11 37.1 97 16 170/98 (122) 96 08/18/17 12:00 Room Air 08/18/17 11:13 36.9 74 18 152/95 (114) 99 08/18/17 08:12 100 Room Air 08/18/17 08:00 Room Air 08/18/17 07:37 36.8 74 20 160/93 (115) 100 Room Air 08/18/17 06:36 70 16 150/89 98 Room Air 08/18/17 05:40 36.8 65 16 151/91 98 Room Air 08/18/17 04:09 76 18 148/87 98 Room Air Laboratory Results Last 24 Hours Test 08/18/17 01:41 08/18/17 02:06 08/18/17 06:42 Urine Color YELLOW Urine Appearance CLEAR Urine pH 7.0 Urine Specific [place] 1.018 Urine Protein NEG Urine Glucose (UA) NEG Urine Ketones TRACE Urine Occult Blood NEG Urine Nitrite NEG Urine Bilirubin NEG Urine Urobilinogen NEG Urine Leukocyte Esterase NEG Urine Opiates Screen NEG Urine Methadone, Qualitative NEG Urine Barbiturates NEG Urine Phencyclidine (PCP) Level NEG Ur Amphetamine/Methamphetamine POS MDMA (Ecstasy) Screen NEG Urine Benzodiazepines Screen POS Urine Cocaine Metabolite NEG Urine Marijuana (THC) POS White Blood Count 16.57 K/uL 12.14 K/uL Red Blood Count 4.68 M/uL 4.66 M/uL Hemoglobin 14.8 g/dL 14.5 g/dL Hematocrit 41.7 % 41.6 % Mean Corpuscular Volume 89.1 fL 89.3 fL Mean Corpuscular Hemoglobin 31.6 pg 31.1 pg Mean Corpuscular Hemoglobin Concent 35.5 g/dl 34.9 g/dl Platelet Count 351 K/uL 301 K/uL Mean Platelet Volume 10.1 fL 10.2 fL Neutrophils (%) (Auto) 82.0 % Lymphocytes (%) (Auto) 10.2 % Monocytes (%) (Auto) 7.1 % Eosinophils (%) (Auto) 0.4 % Basophils (%) (Auto) 0.1 % Neutrophils # (Auto) 13.41 K/uL Lymphocytes # (Auto) 1.66 K/uL Monocytes # (Auto) 1.16 K/uL Eosinophils # (Auto) 0.06 K/uL Basophils # (Auto) 0.02 K/uL RDW Standard Deviation 42.7 fL 42.4 fL RDW Coefficient of Variation 13.1 % 13.0 % Immature Granulocyte % (Auto) 0.2 % Immature Granulocyte # (Auto) 0.03 K/uL Nucleated RBC Absolute Count (auto) 0.00 K/uL Nucleated Red Blood Cells % 0.0 % Sodium Level 139 mmol/L 139 mmol/L Potassium Level 3.4 mmol/L 3.8 mmol/L Chloride Level 101 mmol/L 104 mmol/L Carbon Dioxide Level 29 mmol/L 29 mmol/L Anion Gap 9.0 mmol/L 6.0 mmol/L Blood Urea Nitrogen 5 mg/dl 5 mg/dl Creatinine 1.15 mg/dl 1.09 mg/dl Est Creatinine Clear Calc Drug Dose 115.8 ml/min 122.1 ml/min Estimated GFR () 105.6 112.6 Estimated GFR (Non- 91.1 97.2 BUN/Creatinine Ratio 4.5 4.1 Random Glucose 106 mg/dl 122 mg/dl Calcium Level 9.1 mg/dl 9.2 mg/dl Total Bilirubin 0.7 mg/dl Direct Bilirubin 0.1 mg/dl Aspartate Amino Transf (AST/SGOT) 13 U/L Alanine Aminotransferase (ALT/SGPT) 18 U/L Alkaline Phosphatase 86 U/L Total Protein 8.0 gm/dl Albumin 4.5 gm/dl Thyroid Stimulating Hormone (TSH) 4.080 uIu/ml Salicylates Level < 1.7 mg/dl Acetaminophen Level < 2 ug/ml Ethyl Alcohol mg/dL < 3.0 mg/dl Mental Examination During interview pt is: other (alert but unable to answer orientation questions appropriately) Appearance: appropriately groomed Eye contact is: other (staring intently at times, other times closes eyes) Motor behavior is: other (odd movements of hands) Speech: other (loud, laughing) Thought process: incoherent, word salad Thought content: other (unable to assess due to severity of disorganization) Suicidal thought are: denied Homicidal thoughts are: denied Cognition: other (all spheres impaired) Insight: severely impaired Judgement: severely impaired Impression / Recommendations Impression 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 Will offer risperidone 1mg bid, and continue to monitor. Unclear how much Xanax and alcohol he's been using, and consider use of AWSS protocol for withdrawal.
[2017-08-18] MEDS: RISPERIDONE ODT 1MG PO SCH (20:43)
[2017-08-18 20:54] VITALS: BP 117/72; PULSE 89; TEMP 36.5; O2SAT 97
[2017-08-18 23:44] VITALS: BP 146/78; PULSE 71; TEMP 36.8; O2SAT 97
[2017-08-19 07:24] VITALS: BP 137/74; PULSE 72; TEMP 36.6; O2SAT 98
[2017-08-19] MEDS: RISPERIDONE ODT 1MG PO SCH (07:45)
--- NOTE | 2017-08-19 09:42 | Psychiatric Progress Notes ---
Psychiatric Progress Note Date of Service Aug 19, 2017. 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 Seen today for follow-up. CC: "good, I feel a lot better." Interval history: The patient was seen for the initial consult yesterday, was disoriented and nonsensical, and was started on risperidone 1 mg twice daily. His parents were contacted for collateral information, confirmed no psychiatric history or history of suicidal or threatening statements, but concern for anxiety and substance abuse. He received 1 mg of risperidone last night and another milligram this morning. Dr. Liu present at the bedside today as well. Patient is much improved, affect stabilized and thoughts organized. He denies recent symptoms of depression, suicidal thoughts, hallucinations, paranoia, and feels his thinking is "back to normal." She does not remember much of the past week. He knows that his friends brought him to the hospital because he was "not myself, but I do not think I did anything crazy." Reviewed his presenting symptoms and reports from friends that he had been altered for about a week prior to admission and so disorganized that his speech was nonsensical for about 2 days prior to admission. He believes he became altered after he smoked a joint at a green party, saying "it was weird, may be it was laced with something," perhaps synthetic marijuana. He is not sure exactly when that occurred, but thinks it was in the week prior to admission. He also admitted to abusing Xanax and Adderall which he took while drinking alcohol just prior to coming to the hospital. He said he had not been eating or sleeping for several days prior to admission, and was feeling very anxious. He denies significant anxiety now, and denies ever having an episode like this in the past. His parents are in town, but not present during the interview. 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 He states that he is planning on withdrawing from school and returning home to [place] with his parents, and is willing to follow up with an outpatient psychiatrist there. He states the risperidone has been very helpful for his thoughts and anxiety, and he would like to continue taking it for now. Reviewed his substance abuse history: Patient states he has abused Adderall episodically, sometimes to study and sometimes recreationally, and last took it the day prior to admission. He is also abuse Xanax "a handful of times," but denies taking it regularly or having withdrawal when he stops taking it. He has been smoking marijuana daily for the past 4-5 years, as he thinks it helps with his anxiety, but is willing to try taking the medication and instead and to stop smoking pot. He also reports a history of LSD use, but cannot recall when he last use it, and thinks it was weeks to months prior to admission. He denies use of MDMA or related substances , opiates, heroin, and diabetes drugs. He wants to know if he can leave the hospital today. ROS: Denies pain, nausea, vomiting, diarrhea. Well nourished, well developed WM appearing stated age. Casually dressed and adequately groomed. Calm and cooperative. Seated in NAD, with fair eye contact and no abnormal movements. Speech is normal rate, volume, and tone. Mood is "good," and affect is stable and congruent. Thoughts are linear, logical and goal directed. The patient denied suicidal and homicidal ideation and was able to safety plan. No paranoia, delusions, or hallucinations, and did not appear to be responding to internal stimuli. Cognition was grossly intact. Alert and oriented to person, place and time. Intelligence is consistent with level of education. Insight and and judgment are fair. Diagnosis: Delirium, multifactorial, resolving (substance induced, lack of sleep ). Polysubstance abuse (alprazolam, prescription stimulants, alcohol, cannabis, ? others) Recommendations: Patient presented with disorientation, severe disorganization of speech, labile mood, in the context of polysubstance intoxication. He thinks that he smoked a joint laced with substance other than marijuana, as he felt altered afterwards, did not sleep or eat for several days, and his condition worsened. He is much improved after 2 doses of risperidone 1 mg, and is agreeable to continuing the medication. He will need ongoing monitoring to assess for any underlying mental health issue, such as an anxiety or bipolar disorder, but at this time cannot be reliably diagnosed because of the overlay of significant substance abuse. Synthetic stimulant and cannabinoid labs were drawn, but are still pending, we are still awaiting a confirmatory results of initial drug screen which was positive for amphetamine/methamphetamine, benzodiazepines, and marijuana. He is making what could be seen as some grandiose statements, that he is going to drop out of school and is starting a company, and clearly has not been functioning well since spring break, having not gone to classes. Recommend he continue the risperidone 1 mg twice daily for now, and that outpatient psychiatric follow-up be arranged in his home town of [place], as he states he is withdrawing from school and returning home with parents. I have asked the psychiatric liaison nurse to return and facilitate setting up an outpatient appointments, and of also recommended the primary team discuss discharge planning with the parents. The patient has been advised of the risks of ongoing substance abuse, including altered mental status, worsening of mood and anxiety, development of a psychotic disorder, and legal and social problems. He has been advised of the recommendations for abstinence from substances, and indicates a willingness for sobriety. He would benefit from substance abuse treatment as well, and ideally would be referred to a clinician who could provide both medication management and substance abuse treatment in his area. He is not interested in inpatient psychiatric treatment, and at this time does not meet criteria for involuntary inpatient treatment.
[2017-08-19] MEDS ORDERED: [UNRECOGNIZED DRUG - CODE] PO (11:32)
--- NOTE | 2017-08-19 11:41 | Discharge Instructions ---
Discharge Instructions Date of Service Aug 19, 2017. Admission Reason for Admission: Polysubstance Abuse, Suicidal Ideations Discharge Discharge Diagnosis / Problem: Polysubstance abuse Discharge Goals Goal(s): Decrease discomfort, Improve function Activity Recommendations Activity Limitations: resume your previous activity . Instructions / Follow-Up Instructions / Follow-Up You were admitted after you were brought to the ER by your friends after you were noted to behave strangely. There was a concern of polysubstance abuse and you had admitted to taking Xanax, marijuana and Adderall. Your urine had tested positive for benzodipaenes, methamphetamines and marijuana and screening for other substances are currently pending. You were treated with an antipsychotic medication which seemed to help with your symptoms. Please continue to use risperidone 1 mg twice daily Please refrain from using any substances as they might negatively affect your health ,worsen your mood and anxiety and lead to legal and social problems. You may consider treatment for substance abuse. You will also need to follow up with psychiatry as an outpatient as you will need further evaluation to rule out any underlying mental health issues . Please follow up with a psychiatrist after discharge either locally or in [facility]. please follow up with your family doctor in about a week Current Hospital Diet Patient's current hospital diet: Regular Diet Discharge Diet Recommended Diet: Regular Diet Pending Studies Studies pending at discharge: yes List of pending studies: urine drug screen Medical Emergencies . Who to Call and When: Medical Emergencies: If at any time you feel your situation is an emergency, please call 911 immediately. . Non-Emergent Contact Non-Emergency issues call your: Primary Care Provider . . "Provider Documentation" section prepared by Elsy Liu. . Resident Tracking Resident Involvement: Resident Care Provided Care Provided: Pediatric Care (not )
[2017-08-19 11:46] VITALS: BP 137/74; PULSE 72; TEMP 36.6; O2SAT 98
--- NOTE | 2017-08-19 17:12 | Discharge Summary ---
Discharge Summary Date of Service Aug 19, 2017. Discharge Summary Admission Date: Aug 18, 2017 at 05:50 Discharge Date: Aug 19, 2017 Discharge Disposition: Home Principal Diagnosis: drug induced psychosis Immunizations: Have You Had Influenza Vaccine: Unknown History of Tetanus Vaccine?: Unknown History of Pneumococcal: Unknown History of Hepatitis B Vaccine: Unknown Procedures: [~ rep ct add3]] HEAD WITHOUT CONTRAST (CT) CT DOSE: 614.27 mGy.cm HISTORY: Mental status change altered ms TECHNIQUE: Multiaxial CT images of the head were performed without the use of intravenous contrast. A dose lowering technique was utilized adhering to the principles of ALARA. Comparison: None. Findings: The paranasal sinuses and mastoid air cells are clear. The calvarium and skull base are intact. The ventricles and sulci are within normal limits. There is no mass, hematoma, midline shift, or acute infarct. Slight increased density right transverse sinus felt to represent unremarkable normal asymmetry. Impression: No acute intracranial abnormality. The above report was generated using voice recognition software. It may contain grammatical, syntax or spelling errors. Electronically signed by: Freddie Lowery M.D. 08/18/2017 6:59 AM Last Resulted CBC 08/18/17 06:42 Last Resulted BMP 08/18/17 06:42 Consultations: psychiatry: Diagnosis: Delirium, multifactorial, resolving (substance induced, lack of sleep ). Polysubstance abuse (alprazolam, prescription stimulants, alcohol, cannabis, ? others) Recommendations: Patient presented with disorientation, severe disorganization of speech, labile mood, in the context of polysubstance intoxication. He thinks that he smoked a joint laced with substance other than marijuana, as he felt altered afterwards, did not sleep or eat for several days, and his condition worsened. He is much improved after 2 doses of risperidone 1 mg, and is agreeable to continuing the medication. He will need ongoing monitoring to assess for any underlying mental health issue, such as an anxiety or bipolar disorder, but at this time cannot be reliably diagnosed because of the overlay of significant substance abuse. Synthetic stimulant and cannabinoid labs were drawn, but are still pending, we are still awaiting a confirmatory results of initial drug screen which was positive for amphetamine/methamphetamine, benzodiazepines, and marijuana. He is making what could be seen as some grandiose statements, that he is going to drop out of school and is starting a company, and clearly has not been functioning well since spring break, having not gone to classes. Recommend he continue the risperidone 1 mg twice daily for now, and that outpatient psychiatric follow-up be arranged in his home town of [place], as he states he is withdrawing from school and returning home with parents. I have asked the psychiatric liaison nurse to return and facilitate setting up an outpatient appointments, and of also recommended the primary team discuss discharge planning with the parents. The patient has been advised of the risks of ongoing substance abuse, including altered mental status, worsening of mood and anxiety, development of a psychotic disorder, and legal and social problems. He has been advised of the recommendations for abstinence from substances, and indicates a willingness for sobriety. He would benefit from substance abuse treatment as well, and ideally would be referred to a clinician who could provide both medication management and substance abuse treatment in his area. He is not interested in inpatient psychiatric treatment, and at this time does not meet criteria for involuntary inpatient treatment. Medication Reconciliation New Medications: Risperidone (Risperidone M-Tab) 1 Mg Mary 1 MG PO BID for 30 Days Discharge Exam Physical Exam: General Appearance: no apparent distress Eyes: EOMI ENT: hearing grossly normal Neck: trachea midline Respiratory/Chest: no respiratory distress, no accessory muscle use Neurologic/Psychiatric: chauffeur motorbus II-XII nml as tested, alert, normal mood/affect , oriented x 3 Skin: normal color, warm/dry Hospital Course admitted with markedly altered mentation -medical w/u yielding high suspicion of drug related effects - drank/smoked marijuana/took LSD "all weekend" before admission -concern on new [place], new schizophrenia/psychosis given age of onset, but certainly leading differential centers on substance use -improved nicely overnight - now mentally clear/oriented, pt appearing safe for discharge/father feels he is safe to go home with him -extensive discussion on drug use, risks. recommended absolute abstinence at this time -risperdal for now as per psych -outpt PCP and psych f/u (especially to ensure no s/s of a true primary psych dx and to determine when it may be possible to wean risperdal) Total Time Spent: Greater than 30 minutes This includes examination of the patient, discharge planning, medication reconciliation, and communication with other providers. Discharge Instructions Please refer to the electronic Patient Visit Report (Discharge Instructions) for additional information. Additional Copies To Lisseth Rowland MD; [facility]
== END 2017-08-19 12:41 | disposition home or self-care (01) ==
LOC: C.EDB 01:19 → C.MS2W 05:50 → C.MED 05:50 → ENRESERV 06:19
PROVIDERS: ADMIT Student in an Organized Health Care Education/Training Program; ATTEND Family Medicine
DX: F15.121 Other stimulant abuse with intoxication delirium (principal); T42.4X2A Poisoning by benzodiazepines, intentional self-harm, initial encounter; T43.622A Poisoning by amphetamines, intentional self-harm, initial encounter; X58.XXXA Exposure to other specified factors, initial encounter; D72.829 Elevated white blood cell count, unspecified; R45.851 Suicidal ideations; R41.0 Disorientation, unspecified; R03.0 Elevated blood-pressure reading, without diagnosis of hypertension; F12.10 Cannabis abuse, uncomplicated